=== PATIENT | female | born 1955 | race Caucasian/White ===

== ENCOUNTER 2021-05-23 08:52 | Emergency (ER) | payer MEDICAID ==
[~2021-05-23] VITALS: Ht 162.6 cm; Wt 68.0 kg
--- NOTE | 2021-05-23 08:56 | NUR ---
pt ambulated to bed 09.
[2021-05-23 09:04] VITALS: BP 119/76
--- NOTE | 2021-05-23 09:06 | NUR ---
DR DELGADO AT BEDSIDE EVALUATING PATIENT
--- NOTE | 2021-05-23 09:07 | NUR ---
RN at bedside for further evaluation.
[2021-05-23] MEDS ORDERED: KETOROLAC 30 MG/ML VIAL IM ONE (09:10)
--- NOTE | 2021-05-23 09:17 | NUR ---
Pt taken to XR via W/C.
--- NOTE | 2021-05-23 09:23 | NUR ---
Pt taken to ER bed 9 via W/C.
[2021-05-23] MEDS ORDERED: DICL100G5 TP (09:38)
[2021-05-23] MEDS ORDERED: IBUP-2213 PO (09:38)
[2021-05-23 10:17] VITALS: BP 119/76
--- NOTE | 2021-05-23 10:18 | NUR ---
Patient discharged with v/s stable. Written and verbal after care instructions given and explained. Patient alert, oriented and verbalized understanding of instructions. Ambulatory with steady gait. All questions addressed prior to discharge. ID band removed. Patient advised to follow up with PMD. Rx of IBUPROFEN 600MG PO, AND DICLOFENAC 100GM TOPICAL given. Patient educated on indication of medication including possible reaction and side effects. Opportunity to ask questions provided and answered.
--- NOTE | 2021-05-23 10:19 | NUR ---
65 Y/O FEMALE C/O RIGHT KNEE PAIN 09/06 DESCRIBES ACHING S/P LIFTING BOXES AT HOME. PT STATES SHE TOOK EXCEDRIN AT HOME WITH SOME RELIEF. PT STATES +N/-V, DENIES FEVER/CHILLS. PT STATES IN THE PAST SHE HAS BEEN PRESCRIBED CELEBREX AND HAS HELPED IN THE PAST BUT TODAY IT IS "NOT WORKING ANYMORE". PMH: RA RX: CELEBREX ALLERGIES: SULFA
== END 2021-05-23 10:18 | disposition home or self-care (01) ==
LOC: MED 08:52
DX: M25.561 Pain in right knee (principal); Z88.2 Allergy status to sulfonamides; Z79.899 Other long term (current) drug therapy
CPT/HCPCS: 73562; 96372; 99283; J1885